=== PATIENT | female | born 2000 | race American Indian/Alaskan Native ===

== ENCOUNTER 2020-02-13 00:41 | Emergency (ER) | payer OTHER ==
[2020-02-13 01:21] VITALS: BP 121/90
[2020-02-13 01:47] LABS: Basophils % (Auto) 0.3 % (0.0-1.8); Eosinophils % (Auto) 0.8 % (0.0-4.3); Hematocrit 38.6 % (30.3-42.9); Hemoglobin 13.5 gm/dl (10.1-14.3); Lymphocytes % (Auto) 31.5 % (13.4-35.0); Mean Corpuscular HGB Conc 35 % (30-34); Mean Corpuscular Volume 92 fl (79-97); Monocytes # (Auto) 0.5 K/mm3 (0.0-0.8); Monocytes % (Auto) 8.1 % (0.0-7.3); Platelet Count 298 K/mm3 (140-440); Red Cell Distribution Width 12.4 % (13.2-15.2)
--- NOTE | 2020-02-13 02:38 | Ultrasound Report ---
US OB <= 14 wk fetus add gest INDICATION / CLINICAL INFORMATION: abdominal pain. COMPARISON: None available. FINDINGS: Transabdominal imaging was performed. There is no sonographic evidence of intrauterine . Endometrial echo complex is not well visu alized but appears thickened, measuring 2.1 cm. No adnexal lesions are identified. The ovaries are obscured by bowel gas. IMPRESSION: 1. No sonographic evidence of intrauterine . 2. Reason for not visualized. 3. The endometrial echo complex is not well visualized. This may account for abnormal measurement of 2.1 cm. Short-term sonographic follow-up is recommended. Signer Name: Saji Brown MD Signed: 02/13/2020 2:33 AM Workstation Name: [id number]
[2020-02-13 02:41] LABS: Bacteria,Urine 1+ /HPF (Negative); Bilirubin,Urine NEG (Negative); Blood,Urine NEG (Negative); Color,Urine Yellow (Yellow); Mucus,Urine FEW /HPF; Protein,Urine <15 mg/dL mg/dL (Negative); RBC,Urine < 1.0 /HPF (0.0-6.0); Urobilinogen,Urine < 2.0 mg/dL (<2.0)
--- NOTE | 2020-02-13 04:06 | Emergency Department Report ---
ED Abdominal Pain HPI - General Chief Complaint: Abdominal Pain Stated Complaint: PREG, CRAMPS Source: patient Mode of arrival: Ambulatory Limitations: No Limitations - History of Present Illness Initial Comments: Patient is a A1 19-year-old -[place] female who is approximately 4 weeks gestation and who presents to the ED with complaint of acute onset persistent severe pelvic pain intermittently for the last 12 hours. Patient states that the pain has been persistent on and off and waxing and waning when present. Patient denies fever, chills, nausea, vomiting, vaginal bleeding, vaginal discharge, dysuria, urinary frequency and urgency, low back pain, sore throat, chest pain or shortness of breath., Complaint: abdominal pain -: Sudden, hour(s) (12) Location: suprapubic Radiation: suprapubic Migration to: no migration Severity scale (0 -10): 6 Quality: cramping, aching, sharp Consistency: intermittent Improves With: nothing Worsens With: nothing Associated Symptoms: denies other symptoms. denies: nausea, vomiting, diarrhea, fever, chills, constipation, dysuria, hematemesis, hematochezia, melena, hematuria - Related Data Previous Rx's Medication Instructions Recorded Last Taken Type Acetaminophen [Tylenol] 500 mg PO Q6HR PRN #30 tablet 02/13/20 Unknown Rx Allergies Allergy/AdvReac Type Severity Reaction Status Date / Time No Known Allergies Allergy Unverified 02/13/20 01:25 ED Review of Systems ROS: Stated complaint: PREG, CRAMPS Other details as noted in HPI Constitutional: denies: chills, fever Eyes: denies: eye pain, eye discharge, vision change ENT: denies: ear pain, throat pain Respiratory: denies: cough, shortness of breath, wheezing Cardiovascular: denies: chest pain, palpitations Endocrine: no symptoms reported Gastrointestinal: abdominal pain. denies: nausea, vomiting, diarrhea Genitourinary: denies: urgency, dysuria, discharge Musculoskeletal: denies: back pain, joint swelling, arthralgia Skin: denies: rash, lesions Neurological: denies: headache, weakness, paresthesias Psychiatric: denies: anxiety, depression Hematological/Lymphatic: denies: easy bleeding, easy bruising ED Past Medical Hx - Past Medical History Previous Medical History?: Yes Additional medical history: Miscarriage - Surgical History Past Surgical History?: No - Social History Smoking Status: Never Smoker Substance Use Type: None - Medications Home Medications: Home Medications Medication Instructions Recorded Confirmed Last Taken Type Acetaminophen [Tylenol] 500 mg PO Q6HR PRN #30 tablet 02/13/20 Unknown Rx ED Physical Exam - General Limitations: No Limitations General appearance: alert, in no apparent distress - Head Head exam: Present: atraumatic, normocephalic, normal inspection - Eye Eye exam: Present: normal appearance, PERRL, EOMI Pupils: Present: normal accommodation - ENT ENT exam: Present: normal exam, normal orophraynx, mucous membranes moist, TM's normal bilaterally, normal external ear exam - Neck Neck exam: Present: normal inspection, full ROM - Respiratory Respiratory exam: Present: normal lung sounds bilaterally. Absent: respiratory distress, wheezes, rhonchi, chest wall tenderness, decreased breath sounds, prolonged expiratory - Cardiovascular Cardiovascular Exam: Present: regular rate, normal rhythm, normal heart sounds. Absent: systolic murmur, diastolic murmur, rubs, gallop - GI/Abdominal GI/Abdominal exam: Present: soft, tenderness (Palpable mild suprapubic tenderness, no guarding), normal bowel sounds. Absent: guarding, rebound, hyp eractive bowel sounds, hypoactive bowel sounds, organomegaly - Bi-manual exam: Present: other (Pelvic exam deferred, patient declined) - Extremities Exam Extremities exam: Present: normal inspection, full ROM, normal capillary refill - Back Exam Back exam: Present: normal inspection, full ROM. Absent: tenderness, CVA tenderness (R), CVA tenderness (L), muscle spasm, paraspinal tenderness, vertebral tenderness - Neurological Exam Neurological exam: Present: alert, oriented X3, CN II-XII intact, normal gait, reflexes normal - Psychiatric Psychiatric exam: Present: normal affect, normal mood - Skin Skin exam: Present: warm, dry, intact, normal color. Absent: rash ED Course Vital Signs 02/13/20 01:19 Temperature 99.2 F Pulse Rate 93 H Respiratory 16 Rate Blood Pressure 121/90 O2 Sat by Pulse 99 Oximetry ED Medical Decision Making - Lab Data Result diagrams: 02/13/20 01:26 - Radiology Data Radiology results: report reviewed, image reviewed Findings [facility] [address] [place] [address] Ultrasound Report Signed Patient: PAUL VIRAMONTES#: [id number] : 2000 Acct:[id number] Age/Sex: 19 / F ADM Date: 02/13/20 Loc: ED Attending Dr: Ordering Physician: MARION JACOBS MD Date of Service: 02/13/20 Procedure(s): US OB <= 14 wk fetus add gest Accession Number(s): [id number] cc: MARION JACOBS MD US OB <= 14 wk fetus add gest INDICATION / CLINICAL INFORMATION: abdominal pain. COMPARISON: None available. FINDINGS: Transabdominal imaging was performed. There is no sonographic evidence of intrauterine . Endometrial echo complex is not well visualized but appears thickened, measuring 2.1 cm. No adnexal lesions are identified. The ovaries are obscured by bowel gas. IMPRESSION: 1. No sonographic evidence of intrauterine . 2. Reason for not visualized. 3. The endometrial echo complex is not well visualized. This may account for abnormal measurement of 2.1 cm. Short-term sonographic follow-up is recommended. Signer Name: Saji Brown MD Signed: 02/13/2020 2:33 AM Workstation Name: [id number] Transcribed By: SW Dictated By: Saji Brown MD Electronically Authenticated By: Saji Brown MD Signed Date/Time: 02/13/20232 DD/ 0 TD/TT: - Medical Decision Making This is a A1 19-year-old -[place]ub[place] female who is approximately 4 weeks gestation and who presents to the ED with complaint of acute onset persistent severe pelvic pain intermittently for the last 12 hours. Patient states that the pain has been persistent on and off and waxing and waning when present. In the ED, patient is alert and oriented x3 and is not in distress. Lab test results were reviewed and are all nonactionable including urinalysis but hCG quant was 1985.0. Transvaginal and pelvic ultrasound showed no sonographic evidence of intrauterine . This may be due to the fact that the endometrial echo complex is not well visualized. This may account for abnormal measurement of 2.1 cm. Short-term sonographic follow-up is recommended. These findings were discussed with the CREDIT ANALYST physician denture contour wire specialist Dr. Seema Maravilla who agreed with the plan of care to discharge the patient home on ec topic precautions, and have the patient return to the ED within 48 hours for serial hCG quant repeat and further ultrasound to characterize the and rule out ectopic . Patient was therefore discharged home and advised to maintain a complete pelvic rest, take Tylenol as needed for pain and return to the ED within 48 hours for reevaluation. Patient was also advised to contact Dr. Maravilla's office within 2 days to schedule a follow-up appointment. Patient was however advised return to the ED immediately if symptoms get worse. - Differential Diagnosis Ectopic ; UTI; ovarian cyst; dermoid cyst; PID Critical care attestation.: If time is entered above; I have spent that time in minutes in the direct care of this critically ill patient, excluding procedure time. ED Disposition Clinical Impression: Abdominal pain during in first trimester Ectopic without intrauterine Qualifiers: Location of ectopic : unspecified location Qualified Code(s): O00.90 - Unspecified ectopic without intrauterine Disposition: TO HOME OR SELFCARE Is pt being admited?: No Does the pt Need Aspirin: No Condition: Stable Instructions: Ectopic (ED), Abdominal Pain (ED) Additional Instructions: Maintain a complete pelvic rest, take Tylenol as needed for pain and return to the ED within 48 hours, that is Saturday, February 15, 2020 for repeat serial hCG quant studies and transvaginal ultrasound to characterize the . Follow-up with the CREDIT ANALYST physician as advised. Otherwise return to the ED immediately if your symptoms get worse. Prescriptions: Acetaminophen [Tylenol] 500 mg PO Q6HR PRN #30 tablet PRN Reason: Pain , Severe (7-10) Referrals: STACY MARAVILLA MD [Staff Physician] - 2-3 Days Time of Disposition: 04:48 Print Language: KOSOVAN
== END 2020-02-13 05:04 | disposition home or self-care (01) ==
LOC: ED 00:41
DX: O00.90 Unspecified ectopic pregnancy without intrauterine pregnancy (principal)
CPT/HCPCS: 36415; 76801; 76802; 81001; 84702; 85025